=== PATIENT | female | born 1985 | race Caucasian/White ===

== ENCOUNTER 2018-12-26 14:39 | Inpatient (IN) | payer MEDICAID, OTHER ==
[~2018-12-26] VITALS: Ht 165.1 cm; Wt 78.6 kg
[~2018-12-26 14:39] MED LIST: PIPERACILLIN/TAZO 4.5 GM/NS 100 ML IV SCH
--- NOTE | 2018-12-26 14:51 | ED Neurological Problem ---
General Chief Complaint: Altered Mental Status Stated Complaint: UNRESPONSIVE Source: patient, EMS Exam Limitations: no limitations History of Present Illness Date Seen by Provider: Dec 26, 2018 Time Seen by Provider: 14:48 Initial Comments To ER per [facility] from [facility] with reports of being found unresponsive in bed by her . She just moved here from [place]. 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 She is Xarelto and has not missed any dosages. She denies any attempt to harm herself or having taken any substances. She states that she was cleaning house this morning when she suddenly began to feel dizzy. The dizziness is now gone but she states she feels very tired and she states that the left side of her face feels numb. Per : She approached him at about 1:15 to report that she felt dizzy and lethargic. He also states that they've been working on the house and that she was dizzy and then became less responsive and "I was having a hard time keeping her awake". He states that she hasn't had anything to eat today, he is very tired himself and expects this to just be fatigued related. He states she's never done this before. She's had some sort of arterial intervention in the right leg and "has a clot in the left shoulder but they didn't want to operate on it so they put her on Plavix Xarelto and atorvastatin". He states she's never had an episode like this before, he denies any known substance use or abuse. Timing/Duration: 4-6 hours Associated Symptoms: paresthesia; No slurred speech Allergies and Home Medications Allergies Coded Allergies: Penicillins (Unverified Allergy, Unknown, 12/26/18) Patient Home Medication List Home Medication List Reviewed: Yes Review of Systems Review of Systems Constitutional: see HPI; No chills, No fever Eyes: No Symptoms Reported; Denies Blindness, Denies Blurred Vision Ears, Nose, Mouth, Throat: no symptoms reported Respiratory: no symptoms reported Cardiovascular: no symptoms reported Genitourinary: no symptoms reported Musculoskeletal: no symptoms reported Skin: no symptoms reported Psychiatric/Neurological: No Symptoms Reported Endocrine: No Symptoms Reported Hematologic/Lymphatic: No Symptoms Reported Past Naxkniv-Csyeia-Rrrbdb Hx Patient Social History Alcohol Use: Denies Use Recreational Drug Use: No Smoking Status: Current Everyday Smoker Type Used: Cigarettes Recent Hopitalizations: No Physical Abuse: No Sexual Abuse: No Mistreated: No Fear: No Past Medical History Surgeries: Yes Section, Gallbladder, Nephrectomy, Tubal Ligation Respiratory: Yes Asthma Cardiac: No Hypertension Neurological: No Genitourinary: No Gastroesophageal Reflux Musculoskeletal: Yes Arthritis Endocrine: No HEENT: No Cancer: No Psychosocial: Yes Bipolar, Depression Integumentary: No Physical Exam Vital Signs Vital Signs - First Documented 12/26/18 14:40 Pulse 92 Resp 16 B/P (MAP) 77/43 (54) Pulse Ox 97 O2 Delivery Room Air Capillary Refill : Height, Weight, BMI Height: '" Weight: lbs. oz. kg; BMI Method: General Appearance: WD/WN, no apparent distress HEENT: TMs normal, other (there are some abrasions with dried blood to the left side of her cheek but no swelling or ecchymosis. Pupils are equal round reactive to light but enlarged at about 4-5 mm bilaterally. She is arousable to verbal stimuli but after talking quickly drifts back to sleep. She is hypotensive, blood pressure in the 70s systolic. IV established and 1 L of IV fluid is bolusing. EMS reports that she was not hypotensive during transport.) Neck: non-tender Respiratory: normal breath sounds, no respiratory distress, no accessory muscle use, other (faint expiratory wheeze) Cardiovascular: regular rate, rhythm, no murmur Gastrointestinal: normal bowel sounds, non tender, soft Extremities: other (the left radial pulse is not palpable but the extremity is warm. The right radial pulses +2. The left arm blood pressure was noted to be in the 80s over 40s, 70s over 40s. The right arm blood pressure is the 115over 60s) Neurologic/Psychiatric: other (arousable to verbal stimuli. Answers questions appropriately, recalls all events and memory is intact.) Crainal Nerves: normal hearing, PERRL Skin: normal color, warm/dry Stroke Onset of Symptoms Date of Onset of Symptoms: Dec 26, 2018 Symptoms onset unknown: Yes NIH Stroke Scale Assessment Select: Initial Level of Consciousness: 0=Alert (0), Level of Consciousness- Questions: 0=Answers both month/age (0), LOC Commands: 0=Performs both tasks (0) , Gaze: Normal (0), Visual Haque: 0=No visual loss (0), Facial Movement ( Facial Paresis): 0=Normal symmetrical mnt (0), Motor Function-Arms Right: 0=No drift (0), Motor Function-Arms Left: 0=No drift (0), Motor Function-Legs Right: 0=No drift (0), Motor Function-Legs Left: 0=No drift (0), Limb Ataxia: 0=Absent (0), Sensory: 0=Normal:no loss (0), Best Language: 0=No aphasia (0), Dysarthria : 0=Normal (0), Extinction & Inattention: 0=No abnormality (0), Total: 0 Stroke Thrombolytic Exclusion Age 18 or Over: No Acute intenal hemorrhage: No History of CVA: No Uncontrolled Coagulation Defec: No Intracranial Hemorrhage: No Severe Hypertension: No GI or Bleed: No Subarachnoid Hemorrhage: No Intracranial Neoplasm/Aneurysm: No Oral Anticoagulants: Yes Surgery or Trauma: No Puncture of Non-Compressible V: No Diabetic Hemorrhagic Retinopat: No Organ Biopsy: No Recent Obstetric Delivery: No Glucose: No Significant Hepatic Dysfunctio: No NIH Stoke Scale >22: No Bacterial Endocarditis: No Pericarditis: No Improving Symptoms: No Platelets: No TPA Contraindication: No IV - TPa Received IV - TPa Procedure Performed?: No (/) Focused Exam Lactate Level 12/26/18 14:47: Lactic Acid Level 1.18 Lactic Acid Level Laboratory Tests Test 12/26/18 14:47 Lactic Acid Level 1.18 MMOL/L (0.50-2.00) Progress/Results/Core Measures Results/Orders Lab Results Laboratory Tests Test 12/26/18 14:47 12/26/18 15:12 Range/Units White Blood Count 14.2 H 4.3-11.0 10^3/uL Red Blood Count 5.13 4.35-5.85 10^6/uL Hemoglobin 15.8 11.5-16.0 G/DL Hematocrit 46 35-52 % Mean Corpuscular Volume 90 80-99 FL Mean Corpuscular Hemoglobin 31 25-34 PG Mean Corpuscular Hemoglobin Concent 34 32-36 G/DL Red Cell Distribution Width 12.7 10.0-14.5 % Platelet Count 270 130-400 10^3/uL Mean Platelet Volume 10.5 H 7.4-10.4 FL Neutrophils (%) (Auto) 57 42-75 % Lymphocytes (%) (Auto) 32 12-44 % Monocytes (%) (Auto) 10 0-12 % Eosinophils (%) (Auto) 1 0-10 % Basophils (%) (Auto) 1 0-10 % Neutrophils # (Auto) 8.1 H 1.8-7.8 X 10^3 Lymphocytes # (Auto) 4.5 H 1.0-4.0 X 10^3 Monocytes # (Auto) 1.4 H 0.0-1.0 X 10^3 Eosinophils # (Auto) 0.1 0.0-0.3 10^3/uL Basophils # (Auto) 0.1 0.0-0.1 10^3/uL Neutrophils % (Manual) 49 % Lymphocytes % (Manual) 39 % Monocytes % (Manual) 10 % Eosinophils % (Manual) 2 % Blood Morphology Comment NORMAL Sodium Level 139 135-145 MMOL/L Potassium Level 4.3 3.6-5.0 MMOL/L Chloride Level 107 98-107 MMOL/L Carbon Dioxide Level 20 L 21-32 MMOL/L Anion Gap 12 5-14 MMOL/L Blood Urea Nitrogen 13 7-18 MG/DL Creatinine 0.85 0.60-1.30 MG/DL Estimat Glomerular Filtration Rate > 60 BUN/Creatinine Ratio 15 Glucose Level 92 70-105 MG/DL Lactic Acid Level 1.18 0.50-2.00 MMOL/L Calcium Level 9.9 8.5-10.1 MG/DL Corrected Calcium 9.6 8.5-10.1 MG/DL Total Bilirubin 1.0 0.1-1.0 MG/DL Aspartate Amino Transf (AST/SGOT) 55 H 5-34 U/L Alanine Aminotransferase (ALT/SGPT) 78 H 0-55 U/L Alkaline Phosphatase 117 40-136 U/L Troponin I < 0.028 <0.028 NG/ML Total Protein 7.8 6.4-8.2 GM/DL Albumin 4.4 3.2-4.5 GM/DL Salicylates Level < 5.0 L 5.0-20.0 MG/DL Acetaminophen Level < 10 L 10-30 UG/ML Serum Alcohol < 10 <10 MG/DL Urine Color YELLOW Urine Clarity SLIGHTLY CLOUDY Urine pH 5 5-9 Urine Specific [place] 1.025 H 1.016-1.022 Urine Protein 2+ H NEGATIVE Urine Glucose (UA) NEGATIVE NEGATIVE Urine Ketones 2+ H NEGATIVE Urine Nitrite POSITIVE H NEGATIVE Urine Bilirubin NEGATIVE NEGATIVE Urine Urobilinogen NORMAL NORMAL MG/DL Urine Leukocyte Esterase 1+ H NEGATIVE Urine RBC (Auto) 2+ H NEGATIVE Urine RBC NONE /HPF Urine WBC 5-10 H /HPF Urine Squamous Epithelial Cells 0-2 /HPF Urine Crystals NONE /LPF Urine Bacteria LARGE H /HPF Urine Casts NONE /LPF Urine Mucus NEGATIVE /LPF Urine Culture Indicated YES Urine Opiates Screen NEGATIVE NEGATIVE Urine Oxycodone Screen NEGATIVE NEGATIVE Urine Methadone Screen NEGATIVE NEGATIVE Urine Propoxyphene Screen NEGATIVE NEGATIVE Urine Barbiturates Screen NEGATIVE NEGATIVE Ur Tricyclic Antidepressants Screen POSITIVE H NEGATIVE Urine Phencyclidine Screen NEGATIVE NEGATIVE Urine Amphetamines Screen POSITIVE H NEGATIVE Urine Methamphetamines Screen NEGATIVE NEGATIVE Urine Benzodiazepines Screen NEGATIVE NEGATIVE Urine Cocaine Screen NEGATIVE NEGATIVE Urine Cannabinoids Screen NEGATIVE NEGATIVE My Orders Orders - UMAIR SHAW DETACKER Cbc With Automated Diff (12/26/18 14:46) Comprehensive Metabolic Panel (12/26/18 14:46) Ua Culture If Indicated (12/26/18 14:46) Urine Bedside (12/26/18 14:46) Drug Screen Stat (Urine) (12/26/18 14:46) Salicylate (12/26/18 14:46) Acetaminophen (12/26/18 14:46) Ekg Tracing (12/26/18 14:46) Alcohol (12/26/18 14:46) Chest 1 View, Ap/Pa Only (12/26/18 14:46) Ridley Cath (12/26/18 14:51) Ct Head Wo (12/26/18 14:59) Manual Differential (12/26/18 14:47) Troponin I (12/26/18 15:26) BNP (12/26/18 15:26) Blood Culture (12/26/18 15:26) Lactic Acid Analyzer (12/26/18 15:26) Urine Culture (12/26/18 15:12) Vital Signs/I&O 12/26/18 14:40 Pulse 92 Resp 16 B/P (MAP) 77/43 (54) Pulse Ox 97 O2 Delivery Room Air Progress Progress Note : Progress Note NAME: EDGARDO MONTANEZ MED REC#: [id number] PT STATUS: REG ER : 1985 PHYSICIAN: UMAIR SHAW APRN ADMIT DATE: 12/26/18/ER Draft Date of Exam:12/26/18 CHEST 1 VIEW, AP/PA ONLY INDICATION: Altered mental status. FINDINGS: Portable chest. The lungs are well-aerated and clear. The heart is not enlarged. No pulmonary edema. No hilar adenopathy. No pneumothorax or pleural effusion. No bony abnormalities. IMPRESSION: Normal portable chest. Dictated on workstation # [id number] Dict: 12/26/18 1504 Trans: 12/26/18 1518 TS [id number] Interpreted by: LIZ RODGERS MD Electronically signed by: NAME: EDGARDO MONTANEZ [facility] REC#: [id number] PT STATUS: REG ER : 1985 PHYSICIAN: UMAIR SHAW APRN ADMIT DATE: 12/26/18/ER Draft Date of Exam:12/26/18 CT HEAD WO PROCEDURE: CT head without contrast. TECHNIQUE: Multiple contiguous axial images were obtained through the brain without the use of intravenous contrast. INDICATION: Altered mental status. FINDINGS: Ventricles and cortical gyral pattern are normal. There is no intracranial hemorrhage. No mass effect. No evidence of focal cortical edema. No extra-axial fluid collection. Basal cisterns are clear. Pituitary is not enlarged. Mastoid air cells are well-aerated and clear. No evidence of calvarial fractures. IMPRESSION: Negative CT head without contrast. Dictated on workstation # [id number] Dict: 12/26/18 1543 Trans: 12/26/18 1550 AI [id number] Interpreted by: LIZ RODGERS MD Electronically signed by: Departure Communication (Admissions) She is positive for amphetamines on drug screening which she is not prescribed, that could account for the dilated pupils and altered mental status but not lethargy unless this was mixed with something that is not tested for on our standard urine drug screen. Impression Primary Impression: Altered mental status Disposition: ADMITTED INPATIENT Condition: Stable Admissions Decision to Admit Reason: Admit from ER (General) Decision to Admit/Date: Dec 26, 2018 Time/Decision to Admit Time: 15:46 Departure-Patient Inst. Referrals: NO,LOCAL PHYSICIAN (PCP/Family) Primary Care Physician UMAIR SHAW APRN Dec 26, 2018 14:51
[2018-12-26] MEDS ORDERED: ATORVASTATIN CALCIUM 20 MG TAB (14:55)
[2018-12-26] MEDS ORDERED: ALBUTEROL 90 MCG (14:55)
[2018-12-26] MEDS ORDERED: CLOPIDOGREL 75 MG TABLET (14:55)
[2018-12-26] MEDS ORDERED: XARELTO 20 MG TABLET (14:55)
[2018-12-26] MEDS ORDERED: GABAPENTIN 300 MG CAPSULE (14:55)
[2018-12-26] MEDS ORDERED: DULOXETINE HCL 60 MG (14:55)
[2018-12-26 15:04] LABS: BASOPHILS # (AUTO) 0.1 10^3/uL (0.0-0.1); BASOPHILS % (AUTO) 1 % (0-10); EOSINOPHILS # (AUTO) 0.1 10^3/uL (0.0-0.3); EOSINOPHILS % (AUTO) 1 % (0-10); HEMATOCRIT 46 % (35-52); HEMOGLOBIN 15.8 G/DL (11.5-16.0); LYMPHOCYTES # (AUTO) 4.5 X 10^3 (1.0-4.0); LYMPHOCYTES % (AUTO) 32 % (12-44); MEAN CORPUSCULAR HEMOGLOBIN 31 PG (25-34); MEAN CORPUSCULAR HGB CONC 34 G/DL (32-36); MEAN CORPUSCULAR VOLUME 90 FL (80-99); MEAN PLATELET VOLUME 10.5 FL (7.4-10.4); MONOCYTES # (AUTO) 1.4 X 10^3 (0.0-1.0); MONOCYTES % (AUTO) 10 % (0-12); NEUTROPHILS # (AUTO) 8.1 X 10^3 (1.8-7.8); NEUTROPHILS % (AUTO) 57 % (42-75); PLATELET COUNT 270 10^3/uL (130-400); RED CELL DISTRIBUTION WIDTH 12.7 % (10.0-14.5); WHITE BLOOD COUNT 14.2 10^3/uL (4.3-11.0)
--- NOTE | 2018-12-26 15:19 | Diagnostic Imaging Report ---
INDICATION: Altered mental status. FINDINGS: Portable chest. The lungs are well-aerated and clear. The heart is not enlarged. No pulmonary edema. No hilar adenopathy. No pneumothorax or pleural effusion. No bony abnormalities. IMPRESSION: Normal portable chest. Dictated by: Dictated on workstation # [id number]
[2018-12-26 15:21] LABS: BILIRUBIN,URINE NEGATIVE (NEGATIVE); CLARITY,URINE SLIGHTLY CLOUDY; COLOR,URINE YELLOW; GLUCOSE, URINE (UA) NEGATIVE (NEGATIVE); KETONES,URINE 2+ (NEGATIVE); LEUKOCYTE ESTERASE ,URINE 1+ (NEGATIVE); NITRITE,URINE POSITIVE (NEGATIVE); PH,URINE 5 (5-9); PROTEIN,URINE 2+ (NEGATIVE); UROBILINOGEN,URINE NORMAL (NORMAL)
[2018-12-26 15:27] LABS: ALANINE AMINOTRANSFERASE 78 U/L (0-55); ALBUMIN 4.4 GM/DL (3.2-4.5); ALKALINE PHOSPHATASE 117 U/L (40-136); BUN/CREATININE RATIO 15; CALCIUM 9.9 MG/DL (8.5-10.1); CARBON DIOXIDE 20 MMOL/L (21-32); CHLORIDE 107 MMOL/L (98-107); CREATININE SERUM 0.85 MG/DL (0.60-1.30); GFR ESTIMATED > 60; GLUCOSE 92 MG/DL (70-105); POTASSIUM 4.3 MMOL/L (3.6-5.0); SALICYLATE < 5.0 MG/DL (5.0-20.0); SODIUM 139 MMOL/L (135-145); TOTAL PROTEIN 7.8 GM/DL (6.4-8.2)
--- NOTE | 2018-12-26 15:28 | NUR ---
PT BACK FROM CT AT THIS TIME.
[2018-12-26 15:36] LABS: BACTERIA,URINE LARGE /HPF
[2018-12-26 15:37] LABS: SQUAMOUS EPITHELIAL CELL,UR 0-2 /HPF
[2018-12-26 15:40] LABS: AMPHETAMINE SCREEN, URINE POSITIVE (NEGATIVE); BARBITURATE SCREEN URINE NEGATIVE (NEGATIVE); BENZODIAZEPINES SCREEN URINE NEGATIVE (NEGATIVE); CANNABINOID SCREEN, URINE NEGATIVE (NEGATIVE); COCAINE SCREEN URINE NEGATIVE (NEGATIVE); METHADONE STAT NEGATIVE (NEGATIVE); METHAMPHETAMINE SCREEN URINE S NEGATIVE (NEGATIVE); OPIATE SCREEN URINE NEGATIVE (NEGATIVE); OXYCODONE STAT NEGATIVE (NEGATIVE); PROPOXYPHENE STAT NEGATIVE (NEGATIVE); TRICYCLIC ANTIDEPRESSANTS SCRE POSITIVE (NEGATIVE)
[2018-12-26 15:43] LABS: ACETAMINOPHEN < 10 UG/ML (10-30)
[2018-12-26 15:46] LABS: EOSINOPHILS % (MANUAL) 2 %; LYMPHOCYTES % (MANUAL) 39 %; MONOCYTES % (MANUAL) 10 %; NEUTROPHILS % (MANUAL) 49 %
[2018-12-26 15:47] LABS: RBC MORPH NORMAL
--- NOTE | 2018-12-26 15:51 | Diagnostic Imaging Report ---
PROCEDURE: CT head without contrast. TECHNIQUE: Multiple contiguous axial images were obtained through the brain without the use of intravenous contrast. INDICATION: Altered mental status. FINDINGS: Ventricles and cortical gyral pattern are normal. There is no intracranial hemorrhage. No mass effect. No evidence of focal cortical edema. No extra-axial fluid collection. Basal cisterns are clear. Pituitary is not enlarged. Mastoid air cells are well-aerated and clear. No evidence of calvarial fractures. IMPRESSION: Negative CT head without contrast. Dictated by: Dictated on workstation # [id number]
[2018-12-26] MEDS ORDERED: cefTRIAXone FOR IV USE 1,000 MG in WATER (STERILE) FOR INJECTION 10 ML IV ONE (16:00)
[2018-12-26] MEDS ORDERED: CATHETER FLUSH 10 ML SYR IV PRN ×2 (16:15→20:30)
[2018-12-26] MEDS ORDERED: RECEIVED CONTRAST 20 ML VIAL IV SCH (16:15)
[2018-12-26] MEDS ORDERED: NS 100 ML (IVPB) BAG IV ONE (16:15)
[2018-12-26] MEDS ORDERED: IOHEXOL 350 MG/ML 100 ML (OMNIPAQUE 350) VIAL IV ONE (16:15)
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
[2018-12-26 17:50] LABS: FREE T4 (FREE THYROXINE) 1.11 NG/DL (0.70-1.48)
[2018-12-26] MEDS ORDERED: LACTATED RINGERS 1,000 ML IV ONE (17:53)
[2018-12-26 18:19] VITALS: BP 97/73
[2018-12-26] MEDS ORDERED: PIPERACILLIN/TAZO 4.5 GM VIAL (ZOSYN) IV ONE (18:21)
[2018-12-26] MEDS ORDERED: NS (IVPB) 100 ML ONE (18:21)
[2018-12-26 19:00] VITALS: BP 96/49
[2018-12-26 20:00] VITALS: BP 93/47
[2018-12-26 21:00] VITALS: BP 108/62
[2018-12-26 22:02] VITALS: BP 101/70
[2018-12-26 23:00] VITALS: BP 93/41
[2018-12-27] VITALS (9 sets, daily range): BP systolic 86–105; BP diastolic 51–73
[2018-12-27] MEDS ORDERED: PIPERACILLIN/TAZO 4.5 GM VIAL (ZOSYN) IV ONE (00:48)
[2018-12-27] MEDS ORDERED: NS (IVPB) 100 ML ONE (00:49)
[2018-12-27] MEDS: LACTATED RINGERS 1,000 ML IV SCH ×2 (01:51→02:21)
[2018-12-27] MEDS: CATHETER FLUSH 10 ML SYR IV SCH ×2 (01:52→06:35)
[2018-12-27 03:42] LABS: BASOPHILS % (AUTO) 0 % (0-10); EOSINOPHILS # (AUTO) 0.3 10^3/uL (0.0-0.3); EOSINOPHILS % (AUTO) 2 % (0-10); HEMATOCRIT 38 % (35-52); LYMPHOCYTES # (AUTO) 4.4 X 10^3 (1.0-4.0); LYMPHOCYTES % (AUTO) 35 % (12-44); MEAN CORPUSCULAR HEMOGLOBIN 31 PG (25-34); MEAN CORPUSCULAR HGB CONC 34 G/DL (32-36); MEAN CORPUSCULAR VOLUME 90 FL (80-99); MEAN PLATELET VOLUME 10.8 FL (7.4-10.4); MONOCYTES # (AUTO) 1.1 X 10^3 (0.0-1.0); MONOCYTES % (AUTO) 9 % (0-12); NEUTROPHILS # (AUTO) 6.6 X 10^3 (1.8-7.8); NEUTROPHILS % (AUTO) 53 % (42-75); PLATELET COUNT 255 10^3/uL (130-400); RED CELL DISTRIBUTION WIDTH 12.5 % (10.0-14.5); WHITE BLOOD COUNT 12.4 10^3/uL (4.3-11.0)
[2018-12-27 04:16] LABS: BUN/CREATININE RATIO 13; CALCIUM 8.4 MG/DL (8.5-10.1); CARBON DIOXIDE 19 MMOL/L (21-32); CHLORIDE 111 MMOL/L (98-107); CREATININE SERUM 0.76 MG/DL (0.60-1.30); GFR ESTIMATED > 60; GLUCOSE 117 MG/DL (70-105); MAGNESIUM 1.8 MG/DL (1.8-2.4); SODIUM 137 MMOL/L (135-145)
[2018-12-27] MEDS ORDERED: MAGNESIUM 1 GM/100 ML IVPB 100 ML IV SCH (06:00)
[2018-12-27] MEDS ORDERED: KCL 20 MEQ TAB (K-DUR) PO SCH (06:00)
[2018-12-27] MEDS ORDERED: POTASSIUM CL 10MEQ/50ML IVPB 50 ML IV SCH (06:00)
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
[2018-12-27] MEDS ORDERED: AZITHROMYCIN 250 MG TAB (ZITHROMAX) PO ONE (06:45)
[2018-12-27] MEDS ORDERED: NS IV 1000 ML 2,000 ML ONE (06:57)
--- NOTE | 2018-12-27 07:24 | Diagnostic Imaging Report ---
INDICATION: Pneumonia. COMPARISON: 12/26/2018 FINDINGS: Single frontal view of the chest demonstrates normal heart size and pulmonary vascularity. The lungs are well aerated and clear. No large pleural effusion or pneumothorax is seen. The visualized osseous structures show no acute abnormalities. IMPRESSION: 1. No acute cardiopulmonary process. Dictated by: Dictated on workstation # [id number]
[2018-12-27] MEDS ORDERED: CEFDINIR 300 MG (OMNICEF) CAP PO SCH (09:00)
[2018-12-27] MEDS ORDERED: NITROFURANTOIN 100 MG (MACROBID) CAPSULE PO SCH (09:00)
[2018-12-27] MEDS ORDERED: AMIT50TA3 PO (09:13)
[2018-12-27] MEDS ORDERED: HYDR-3820 PO (09:13)
[2018-12-27] MEDS ORDERED: CLOP75TA28 PO (09:13)
[2018-12-27] MEDS ORDERED: ATOR20TA66 PO (09:13)
[2018-12-27] MEDS ORDERED: RT-ALBUINH INH (09:13)
[2018-12-27] MEDS ORDERED: GABA-488 PO (09:13)
[2018-12-27] MEDS ORDERED: DULO60CA58 PO (09:13)
[2018-12-27] MEDS ORDERED: RIVA20TA PO (09:13)
[2018-12-27] MEDS ORDERED: IBUP-30 PO (09:13)
[2018-12-27] MEDS ORDERED: LOSA25TA41 PO (09:13)
[2018-12-27] MEDS ORDERED: OMEP20CA12 PO (09:13)
--- NOTE | 2018-12-27 09:14 | NUR ---
SPOKE WITH THE PATIENT ABOUT HER MEDICATIONS. WE WENT OVER THE EXT MED HX AND SHE VERIFIED HOW SHE TAKES EACH MEDICATION. SHE STATES SHE IS STILL TAKING SEVERAL MEDICATIONS THAT ARE PAST DUE FOR REFILL ACCORDING TO THE EXT MED HX. SHE STATES SHE HAS RECEIVED SOME SAMPLES OF XARELTO AND HAS GOTTEN A FEW FILLED AT [facility] IN [place]. I REVIEWED THE MED REC SHE REPORTED IT DESPITE THE PAST DUE REFILL DATES. SHE STATES SHE IS GOING HOME THIS MORNING. I WILL CALL [facility] AND [facility] LATER TODAY IF SHE IS STILL HERE TO GET MORE DETAILS ON LAST FILLED DATES OF THE PAST DUE MEDS TO VERIFY THE EXT MED HX IS SHOWING THE MOST ACCURATE INFORMATION. SHE TAKES [facility] OTC PRN.
--- NOTE | 2018-12-27 10:35 | NUR ---
pt left AMA at 1035. I advised pt to stay until Attending Dr assessed her and wrote script for abx but she refused. pt left with boyfriend. Dr. Pringle advised of situation.
[2018-12-27] MEDS ORDERED: RIVAROXABAN 20 MG TABLET (XARELTO) PO SCH (17:00)
[2018-12-28] MEDS ORDERED: AZITHROMYCIN 250 MG TAB (ZITHROMAX) PO SCH (09:00)
--- NOTE | 2018-12-29 10:00 | Physician Query Clarification ---
PQ-Further Specificity Admission/Discharge Admission Date: Dec 26, 2018 at 21:15 Discharge Date: Dec 27, 2018 at 10:30 The medical record reflects the following clinical scenario: History/Risk Factors: Smoker, HTN, bipolar disorder, Thrombosis lt. subclavian vein Clinical Findings: parethesia, dizzy lethargic, 3/3 CT angio chest - multiple noncalcified nodules RLL, Bilateral scattered ground lass infiltrates. 3/, 3/4 CXR - normal, WBC 14/ 2, Carbon dioxide 20, hypotensive BP 77/43 Treatment: IV Fluids, IV Rocephin, IV Zosyn, Zithromax PO Question: Can you further specify lethargy/dizziness per the clinical indicators above? Please document below. 1. Lethargy due to Pneumonia 2. Lethargy due to UTI 3. Lethargy due to meds (please list meds) 4. Other, with explanation of the clinical findings. 5. Clinically undetermined, no explanation for the clinical findings. PHYSICIAN RESPONSE Can you specify per above: Clinically undetermined Explanation/Clinical Findings Pt left AMA prior ot being seen by admitting physician. In responding to this query, please exercise your independent professional judgment. The purpose of this communication is to more accurately reflect the complexity of your patients condition. The fact that a question is asked does not imply that any particular answer is desired or expected. Thank you for your timely response to this clarification. Requestors name: Atul THIS PHYSICIAN QUERY FORM IS A PERMANENT PART OF THE MEDICAL RECORD ATUL BURKS Dec 29, 2018 10:00 ARLENE ROSARIO MD Dec 30, 2018 11:04
--- NOTE | 2018-12-29 10:03 | Physician Query Clarification ---
PQ-Conflicting Diagnosis Admission/Discharge Admission Date: Dec 26, 2018 at 21:15 Discharge Date: Dec 27, 2018 at 10:30 The medical record reflects the following clinical scenario: History/Risk Factors: Smoker, HTN, bipolar disorder, Thrombosis lt. subclavian vein Clinical Findings: parethesia, dizzy lethargic, 3/3 CT angio chest - multiple noncalcified nodules RLL, Bilateral scattered ground lass infiltrates. 12/26, 12/27 CXR - normal, WBC 14/ 2, Carbon dioxide 20, hypotensive BP 77/43 Treatment: IV Fluids, IV Rocephin, IV Zosyn, Zithromax PO Question: Do you agree with the impression of the Pneumonia per Dr. Lopez. Please document a response below. PHYSICIAN RESPONSE Do you agree w/Consulting Dx?: Clinically undetermined Explanation of clincal finding Patient left against medical advice prior to being seen by admitting physician. In responding to this query, please exercise your independent professional judgment. The purpose of this communication is to more accurately reflect the complexity of your patients condition. The fact that a question is asked does not imply that any particular answer is desired or expected. Thank you for your timely response to this clarification. Requestors name: Atul THIS PHYSICIAN QUERY FORM IS A PERMANENT PART OF THE MEDICAL RECORD ATUL BURKS Dec 29, 2018 10:03 ARLENE ROSARIO MD Dec 30, 2018 10:57
== END 2018-12-27 10:30 | disposition left against medical advice (07) | DRG 917 ==
LOC: ER 14:41 → UNDOADMOB 16:15 → ICU 16:15 → INTOOBSV 21:15 → OBSVTOIN 21:15 → UNDODISIN 12-27 10:30
PROVIDERS: ADMIT Family Medicine; ATTEND Family Medicine
DX: T43.624A Poisoning by amphetamines, undetermined, initial encounter (principal); T43.014A Poisoning by tricyclic antidepressants, undetermined, initial encounter; R53.83 Other fatigue; F15.188 Other stimulant abuse with other stimulant-induced disorder; J18.9 Pneumonia, unspecified organism; R91.8 Other nonspecific abnormal finding of lung field; R59.0 Localized enlarged lymph nodes; N39.0 Urinary tract infection, site not specified; I82.B22 Chronic embolism and thrombosis of left subclavian vein; Z79.01 Long term (current) use of anticoagulants; F17.210 Nicotine dependence, cigarettes, uncomplicated; F31.9 Bipolar disorder, unspecified; I10 Essential (primary) hypertension; K21.9 Gastro-esophageal reflux disease without esophagitis; J45.909 Unspecified asthma, uncomplicated; R29.700 NIHSS score 0
CPT/HCPCS: 36415; 51702; 70450; 71045; 71275; 80048; 80053; 80306; 80320; 80329; 81000; 82375; 83605; 83735; 83880; 84439; 84443; 84484; 84703; 85007; 85025; 85027; 87040; 87077; 87081; 87088; 87186; 87449; 87804; 87899; 93005; 96365; G0378